=== PATIENT | female | born 1940 | race Caucasian/White ===

== ENCOUNTER 2025-06-08 10:45 | Outpatient (RCR) | payer MEDICARE, SELFPAY ==
--- NOTE | 2025-06-01 18:09 | ST.OPIE ---
Visit Care Team Role Provider Type Maisha Camara MD Family Provider Non-Staff Primary Care Provider Specialty: Medical Address: [address] [place] [address], [place], [phone] Email: Pierre Spicer MD Attending Provider Non-Staff Other Providers Referring Provider Specialty: Ear, Nose, Throat Address: [address] [place] [address], [id number] Email: Speech-Language Pathology Initial Evaluation [facility] Voice Resonance Evaluation Start: 06/01/25 16:00 Freq: Status: Active Protocol: Document 06/01/25 16:00 SS (Rec: 06/01/25 16:14 SS Desktop) Voice and Resonance Assessment Session Time Visit Start Time 10:45 Visit Stop Time 11:25 Total Visit Minutes 40 Visit Information Visit Number 1 Plan of Care Dates 06/01/25-08/31/25 Insurance Medicare (kx modifier after x19 visits) Information Next Note Type Next Note Type Treatment Note Referral Referring Physician Dr. Maisha Camara MD Reason for Referral Muscle tension dysphonia, adductor spasmodic dysphonia Setting Setting Outpatient Care Patient History Patient History Magaly Barrett is an 84-year-old female, referred for speech therapy evaluation by Dr. Camara due to concerns regarding voice. Pt presented to ENT Pierre Spicer MD, on 04/21/25 with sensation of tightness in her throat and voice fluctuations. 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 Voice therapy was recommended prior to pursuing botox injections. PMHx significant for allergies, chronic muscle spasms, chronic cough, and canker sores. Videostroboscopy completed by Dr. Spicer indicated good vocal fold motion, complete glottic closure, thick clear mucous, and mild posterior hypertrophy of the posterior commissure. Strained vocal quality with intermittent voice breaks (worse with voiced vowel sounds) was noted. Pt reported onset of symptoms of about a year ago, which have been worsening. Pt endorses tightness in the anterior laryngeal area and sensation of her voice ?seizing up?. Pt expresses difficulty exhaling during physical activity and in conversation more recently. Pt denied hoarseness and significant changes or increased stress/anxiety. Also denied wheezing. Pt has been avoiding reading to her great grandchildren and participating in social groups due to her symptoms. She reports her symptoms worsen during prolonged periods of talking. Pt has had a chronic cough for many years, but stated frequency/ severity has been improving with reduce exposure to allergens. Her primary goal for treatment is to regain ?the ability to be able to speak freely and to avoid botox injections.? Hearing Hearing Level Normal Vision Vision Status Not Impaired Occupational Status Occupation Status Retired from teaching grade school Previous Therapy Previous Speech- No Language Therapy Oral Motor Assessment Source: [employer] [place] [employer] ([employer] Oral-Motor Eval Yes Completed Oral-Motor CRANIAL NERVE EXAM Assessment CN V (Trigeminal): intact b/l CN VII (Facial): intact b/l CN IX/X (Glossopharyngeal/Vagus): Unable to exclude CN X branch involvement 2/2 dysphonia CN XII (Hypoglossal): intact b/l FEATURES OF NEUROMUSCULAR FUNCTION Muscle Strength: Demonstrated adequate labial and lingual strength during resistance tasks Speed of Movement: At the conversation level, speed of movement is judged to be adequate. Accuracy of Movement: In regards to speech production, accuracy is WNL. Range of Motion: ROM within normal limits. Muscle Tone: Muscle tone of all speech related musculature appeared adequate Subjective Subjective Pt arrived to the session on time. She was was engaged and motivated throughout the assessment. - Laryngeal Performance S/Z Ratio S/Z Ratio 12.69/5.21 = 2.43 Below average Functional for No: Respiratory and laryngeal impairment Speech Reduced Laryngeal Yes Function Relative to Respiration Voice Handicap Index Function Subtotal 14 Physical Subtotal 26 Emotional Subtotal 21 Total Score 61 Severity Severe (61-120) CAPE-V Overall Severity Moderate-severe (c/b roughness, strain, and intermittent voice breaks) Roughness Moderate Breathiness Not observed Strain Moderate-severe Pitch WFL Loudness WFL Normal Resonance? Yes Additional Features Other Other Features Intermittent adductor vocal breaks (voiceless onsets Observed better than voiced) Maximum Phonation Time MPT Norms: Women (15-25) Men (25-35) Loudness (50-60 dB); Speaking Rate: Oral Reading of Sentences (190 Words Per Minute); Oral Reading of Paragraphs (160-170 WPM); Speaking Rate in Conversation (150-250 WPM) Maximum Phonation 6.71 Below Average Time Maximum Phonation Reduced Time Maximum Phonation Connected speech sounds worse than sustained phonation Time Comments Voice Pitch Range Norms: Women (100-300 Hz) Men (70-250 Hz) Fundamental Frequency Norms: Women (Mean: 225 Hz; Range: 155-334 Hz) Men ( Mean: 128 Hz; Range: 85-196 Hz) Voice Pitch Normal Voice Loudness Normal Voice Phonatory- Harsh,Hoarse based Quality Paradoxical Vocal Yes: Intermittent adductor voice breaks, Phoneme Fold Movement specificity present Indications Resonance Nasal Resonance Normal Oral Resonance Normal Other Observations Hard Glottal Attacks,Inadequate Breath Support Findings Findings Moderate Impairment Observations 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 Pt?s dysphonia is characterized by roughness, intermittent strain, and intermittent adductor voice breaks. When whispering, laughing, crying, or yawning, her voice sounds within functional limits. Increased dysphonia symptoms and voice breaks noted during connected speech , as compared to sustained phonation. Voiceless onsets sounded better than voiced onsets. Pt reported difficulty speaking during social groups, speaking on the phone, and reading aloud to her great grandchildren . Prognosis for improvement is good for states goals pending cooperation and motivation. Improvement will be contingent upon pt compliance to the following recommendations. Recommendations are for skilled speech therapy services addressing adductor spasmodic dysphonia and laryngeal muscle tension disorder. Treatment will target education in the pathophysiology of spasmodic dysphonia resulting in the increased adduction of the vocal cords. Pt will also receive education re: the pathophysiology of laryngeal muscle tension and be trained in exercise and manual therapy techniques with the goal of reducing laryngeal tension. Pt will be trained in the following: resonant voice exercises, laryngeal massage, SOVTE, stretch and flow, and diaphragmatic breathing. Prognosis Rehabilitation Good Potential - Recommendations Treatment Yes Recommended Treatment Frequency/ 1x/week for 3 months Duration Therapy The plan is for pt to participate in outpatient speech Recommendations therapy services at a frequency of once a week for 12 weeks to address laryngeal muscle tension and adductor spasmodic dysphonia. Short Term Goals 1. Patient will participate in daily HEP targeting laryngeal muscle tension to improve voice quality per patient report. 2. Patient will benefit from education in mechanics of voicing and tone focus in order to assist in producing resonant voice. 3. Patient will demonstrate recall of vocal hygiene education (hydration, minimizing abusive vocal behaviors, GERD management) via teach-back following initial education to increase awareness of unhealthy versus healthy vocal behaviors and improve voice management. 4. Patient will complete voice exercises (including, but not limited to semi-occluded vocal tract exercises, resonant voice exercises, diaphragmatic breathing, and manual massage) in order to improve overall vocal function, vocal quality, and life participation. Typewriter [employer] Winder Goals 1. Patient will improve overall self-perception of voice from a baseline of 61/120 on VHI-30 following participation in skilled services. 2. Patient will report increased ability to return to baseline voice activities (e.g., speaking for prolonged periods of time, reading to great grandchildren) without experiencing laryngeal tension or adductor vocal breaks following participation in skilled services and/or botox injections. Patient/Caregiver Education Patient/Family Described results of evaluation,Patient Understanding Education Vocally Abusive Behavior Behavior Rating Alcohol Consumption Infrequently Arguing (peers/ Never siblings/other) Athletic Activity Never Yelling Mouth Breathing Never Caffeine Use 5 cups daily Calling from Infrequently Distance Coughing/Sneezing hx of chronic cough Loudly Environmental Infrequently Irritant Exposure Smoking Never Excessive Talking Never Yelling/Screaming Never
--- NOTE | 2025-06-01 18:10 | ST.OPPOC ---
Addendum entered and electronically signed by Gm Fox 06/01/25 18:12: POC sent to referring provider requesting signature if in agreement. Original Note: Physical, Occupational & Speech Therapy [facility] Visit Care Team Role Provider Type Maisha Camara MD Family Provider Non-Staff Primary Care Provider Address: [address] [place] [address], [phone] Pierre Spicer MD Attending Provider Non-Staff Other Providers Referring Provider Address: [address] [place] [address], [id number] Speech Pathology Plan of Care Plan of Care Dates 06/01/25-08/31/[address] Maisha Camara MD Patient History Magaly Barrett is an 84-year-old female, referred for speech therapy evaluation by Dr. Camara due to concerns regarding voice. Pt presented to ENT Pierre Spicer MD, on 04/21/25 with sensation of tightness in her throat and voice fluctuations. 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 Voice therapy was recommended prior to pursuing botox injections. PMHx significant for allergies, chronic muscle spasms, chronic cough, and canker sores. Videostroboscopy completed by Dr. Spicer indicated good vocal fold motion, complete glottic closure, thick clear mucous, and mild posterior hypertrophy of the posterior commissure. Strained vocal quality with intermittent voice breaks (worse with voiced vowel sounds) was noted. Pt reported onset of symptoms of about a year ago, which have been worsening. Pt endorses tightness in the anterior laryngeal area and sensation of her voice ?seizing up?. Pt expresses difficulty exhaling during physical activity and in conversation more recently. Pt denied hoarseness and significant changes or increased stress/ anxiety. Also denied wheezing. Pt has been avoiding reading to her great grandchildren and participating in social groups due to her symptoms. She reports her symptoms worsen during prolonged periods of talking. Pt has had a chronic cough for many years, but stated frequency/severity has been improving with reduce exposure to allergens. Her primary goal for treatment is to regain ?the ability to be able to speak freely and to avoid botox injections.? Voice/Resonance Findings Moderate Impairment Voice/Resonance Prognosis Good Voice/Resonance Yes Recommendations Voice/Resonance Treatment 1x/week for 3 months Frequency Therapy Recommendations The plan is for pt to participate in outpatient speech therapy services at a frequency of once a week for 12 weeks to address laryngeal muscle tension and adductor spasmodic dysphonia. Short Term Goals 1. Patient will participate in daily HEP targeting laryngeal muscle tension to improve voice quality per patient report. 2. Patient will benefit from education in mechanics of voicing and tone focus in order to assist in producing resonant voice. 3. Patient will demonstrate recall of vocal hygiene education (hydration, minimizing abusive vocal behaviors, GERD management) via teach- back following initial education to increase awareness of unhealthy versus healthy vocal behaviors and improve voice management. 4. Patient will complete voice exercises ( including, but not limited to semi-occluded vocal tract exercises, resonant voice exercises, diaphragmatic breathing, and manual massage) in order to improve overall vocal function, vocal quality, and life participation. Shelter Goals 1. Patient will improve overall self-perception of voice from a baseline of 61/120 on VHI-[address] skilled services. 2. Patient will report increased ability to return to baseline voice activities (e.g., speaking for prolonged periods of time, reading to great grandchildren) without experiencing laryngeal tension or adductor vocal breaks following participation in ST skilled services and/or botox injections. Comment: Electronically Signed by: GABY Bray 06/01/25 1810 If you are in agreement with this Plan of Care, please return a signed and dated copy. I have reviewed this Plan of Care and certify that the skilled therapy services above are required to meet the patient?s needs. Physician Signature Date Printed Name and Credentials Clinical Instructor Signature Printed Name and Credentials
--- NOTE | 2025-06-08 13:12 | ST.OPTN ---
Visit Care Team Role Provider Type Maisha Camara MD Family Provider Non-Staff Primary Care Provider Address: [address] [place] [address], [phone] Pierre Spicer MD Attending Provider Non-Staff Other Providers Referring Provider Address: [address] [place] [address], [id number] [employer] Treatment Note [employer]PER[employer]OR Treatment Note Start: 06/01/25 16:00 Freq: Status: Active Protocol: Document 06/08/25 12:05 SS (Rec: 06/08/25 12:14 SS DESKTOP) Speech Pathology Treatment Note Session Time Visit Start Time 10:45 Visit Stop Time 11:25 Total Visit Minutes 40 Visit Information Visit Number 2 Plan of Care Dates 06/01/25-08/31/25 Insurance Medicare (kx modifier after x19 visits) Information Setting Treatment Setting Outpatient Care Visit Type Note Type Treatment Note Next Note Type Next Note Type Treatment Note General Information Patient History Magaly Barrett is an 84-year-old female, referred for speech therapy evaluation by Dr. Camara due to concerns regarding voice. Pt presented to ENT Pierre Spicer MD, on 04/21/25 with sensation of tightness in her throat and voice fluctuations. 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 Voice therapy was recommended prior to pursuing botox injections. PMHx significant for allergies, chronic muscle spasms, chronic cough, and canker sores. Videostroboscopy completed by Dr. Spicer indicated good vocal fold motion, complete glottic closure, thick clear mucous, and mild posterior hypertrophy of the posterior commissure. Strained vocal quality with intermittent voice breaks (worse with voiced vowel sounds) was noted. Pt reported onset of symptoms of about a year ago, which have been worsening. Pt endorses tightness in the anterior laryngeal area and sensation of her voice ?seizing up?. Pt expresses difficulty exhaling during physical activity and in conversation more recently. Pt denied hoarseness and significant changes or increased stress/anxiety. Also denied wheezing. Pt has been avoiding reading to her great grandchildren and participating in social groups due to her symptoms. She reports her symptoms worsen during prolonged periods of talking. Pt has had a chronic cough for many years, but stated frequency/ severity has been improving with reduce exposure to allergens. Her primary goal for treatment is to regain ?the ability to be able to speak freely and to avoid botox injections.? Subjective Identification Type Name Observations/Patient Pt arrived to the session on time. She was engaged and Presentation motivated throughout the session. Objective Short Term Goals 1. Patient will participate in daily HEP targeting laryngeal muscle tension to improve voice quality per patient report. 2. Patient will benefit from education in mechanics of voicing and tone focus in order to assist in producing resonant voice. 3. Patient will demonstrate recall of vocal hygiene education (hydration, minimizing abusive vocal behaviors, GERD management) via teach-back following initial education to increase awareness of unhealthy versus healthy vocal behaviors and improve voice management. 4. Patient will complete voice exercises (including, but not limited to semi-occluded vocal tract exercises, resonant voice exercises, diaphragmatic breathing, and manual massage) in order to improve overall vocal function, vocal quality, and life participation. Nursing Home Goals 1. Patient will improve overall self-perception of voice from a baseline of 61/120 on VHI-[address] skilled services. 2. Patient will report increased ability to return to baseline voice activities (e.g., speaking for prolonged periods of time, reading to great grandchildren) without experiencing laryngeal tension or adductor vocal breaks following participation in ST skilled services and/or botox injections. Treatment Activities Education re: alternatives to chronic cough to reduce unhealthy vocal behaviors. Initiated use of voice exercises targeting reduce laryngeal muscle tension, including SOVTE straw phonation and resonant voice exercises. Reviewed HEP at the end of the session. Assessment Patient Response to Good Treatment Rehab Potential Good Impairments Voice Identified Assessment of [employer]PERVISOR facilitated discussion re: vocal quality in the Improvement past week. Pt reported increased cough in the past week . [employer] SUPERVISOR provided education on use of alternatives to chronic coughing to reduce abusive vocal behaviors. Discussed strategies including gentle dry swallowing, sipping water, performing a silent or ?hastings? cough, and relaxed breathing to clear throat sensations without excessive vocal fold impact. Emphasized that consistent use of these techniques can decrease irritation and inflammation, promoting healthier and more efficient voice use. Pt demonstrated understanding and practiced implementation of strategies during session with initial verbal cueing. Guided pt in resonant voice therapy exercises with the goal of increasing efficiency of vocal fold vibration by using a hierarchal approach and starting with /m/ in isolation. Pt instructed to place her hands on his face for tactile feedback during the humming exercise and to focus on the vibration in the front of her face with minimal effort in the throat. Pt with accurate production on first trial. Increased to syllable/word level with cueing for stretching ?m sound and use of intent. Pt production was strained with vocal breaks with first trial on about 50% of opportunities, with improved vocal quality and decrease in strain given cue to stretch /m/ and clinician modeling. Semi-Occluded Vocal Tract Exercise (SOVTE) straw phonation implemented with the goal of improving balance among the subsystems by increasing vocal tract inertance, resulting in a more efficient voice, and reducing hyperfunction and vocal breaks. Instructed pt in initially blowing through the straw into a cup of water with no voice, increasing to 50% voice and 50% air, and advancing to pitch glides. Pt demonstrated frequent voice breaks initially and strain. She was able to consistently produce airflow for 3-4 seconds. Benefitted from [employer] SUPERVISOR modeling, whispering, and short bursts of breathy voice. Continues to require reinforcement for overly breathy production and pitch glides. Reviewed recommendation for daily HEP at the conclusion of the session, with pt stating understanding. Pt was receptive to education and recommendations. Plan to continue to advance exercises as appropriate. Continue POC at a frequency of once a week. Reviewed with Goals,Home Exercise Program Patient Patient/Caregiver Good Understanding Plan Amount of Therapy 3 Months Recommended Frequency of Once a Week Treatment Length of Session 30 Minutes Therapeutic Contents Client Education,Home Exercise Program,Voice Training Provided Patient/ Home Exercise Program,Plan of Care,Questions/Concerns Caregiver Instruction Therapy Continue with Current Program Recommendations Suggested Referral ENT
--- NOTE | 2025-07-15 12:47 | ST.OPDS ---
Visit Care Team Role Provider Type Maisha Camara MD Family Provider Non-Staff Primary Care Provider Address: [address] [place] [address], [phone] Pierre Spicer MD Attending Provider Non-Staff Other Providers Referring Provider Address: [address] [place] [address], [id number] TIN POT OPERATOR Treatment Note TIN POT OPERATOR Treatment Note Start: 06/01/25 16:00 Freq: Status: Active Protocol: Document 07/15/25 12:45 SS (Rec: 07/15/25 12:47 SS [email or web address]) Speech Pathology Treatment Note Session Time Visit Start Time 10:45 Visit Stop Time 11:25 Total Visit Minutes 40 Visit Information Visit Number 2 Plan of Care Dates 06/01/25-08/31/25 Insurance Medicare (kx modifier after x19 visits) Information Setting Treatment Setting Outpatient Care Visit Type Note Type Treatment Note Next Note Type Next Note Type Treatment Note General Information Patient History Magaly Barrett is an 84-year-old female, referred for speech therapy evaluation by Dr. Camara due to concerns regarding voice. Pt presented to ENT Pierre Spicer MD, on 04/21/25 with sensation of tightness in her throat and voice fluctuations. 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 Voice therapy was recommended prior to pursuing botox injections. PMHx significant for allergies, chronic muscle spasms, chronic cough, and canker sores. Videostroboscopy completed by Dr. Spicer indicated good vocal fold motion, complete glottic closure, thick clear mucous, and mild posterior hypertrophy of the posterior commissure. Strained vocal quality with intermittent voice breaks (worse with voiced vowel sounds) was noted. Pt reported onset of symptoms of about a year ago, which have been worsening. Pt endorses tightness in the anterior laryngeal area and sensation of her voice ?seizing up?. Pt expresses difficulty exhaling during physical activity and in conversation more recently. Pt denied hoarseness and significant changes or increased stress/anxiety. Also denied wheezing. Pt has been avoiding reading to her great grandchildren and participating in social groups due to her symptoms. She reports her symptoms worsen during prolonged periods of talking. Pt has had a chronic cough for many years, but stated frequency/ severity has been improving with reduce exposure to allergens. Her primary goal for treatment is to regain ?the ability to be able to speak freely and to avoid botox injections.? Subjective Identification Type Name Observations/Patient Pt arrived to the session on time. She was engaged and Presentation motivated throughout the session. Objective Short Term Goals 1. Patient will participate in daily HEP targeting laryngeal muscle tension to improve voice quality per patient report. 2. Patient will benefit from education in mechanics of voicing and tone focus in order to assist in producing resonant voice. 3. Patient will demonstrate recall of vocal hygiene education (hydration, minimizing abusive vocal behaviors, GERD management) via teach-back following initial education to increase awareness of unhealthy versus healthy vocal behaviors and improve voice management. 4. Patient will complete voice exercises (including, but not limited to semi-occluded vocal tract exercises, resonant voice exercises, diaphragmatic breathing, and manual massage) in order to improve overall vocal function, vocal quality, and life participation. Custodial Goals 1. Patient will improve overall self-perception of voice from a baseline of 61/120 on VHI-[address] skilled services. 2. Patient will report increased ability to return to baseline voice activities (e.g., speaking for prolonged periods of time, reading to great grandchildren) without experiencing laryngeal tension or adductor vocal breaks following participation in ST skilled services and/or botox injections. Treatment Activities Education re: alternatives to chronic cough to reduce unhealthy vocal behaviors. Initiated use of voice exercises targeting reduce laryngeal muscle tension, including SOVTE straw phonation and resonant voice exercises. Reviewed HEP at the end of the session. Assessment Patient Response to Good Treatment Rehab Potential Good Impairments Voice Identified Assessment of TIN POT OPERATOR facilitated discussion re: vocal quality in the Improvement past week. Pt reported increased cough in the past week . TIN POT OPERATOR provided education on use of alternatives to chronic coughing to reduce abusive vocal behaviors. Discussed strategies including gentle dry swallowing, sipping water, performing a silent or ?hastings? cough, and relaxed breathing to clear throat sensations without excessive vocal fold impact. Emphasized that consistent use of these techniques can decrease irritation and inflammation, promoting healthier and more efficient voice use. Pt demonstrated understanding and practiced implementation of strategies during session with initial verbal cueing. Guided pt in resonant voice therapy exercises with the goal of increasing efficiency of vocal fold vibration by using a hierarchal approach and starting with /m/ in isolation. Pt instructed to place her hands on his face for tactile feedback during the humming exercise and to focus on the vibration in the front of her face with minimal effort in the throat. Pt with accurate production on first trial. Increased to syllable/word level with cueing for stretching ?m sound and use of intent. Pt production was strained with vocal breaks with first trial on about 50% of opportunities, with improved vocal quality and decrease in strain given cue to stretch /m/ and clinician modeling. Semi-Occluded Vocal Tract Exercise (SOVTE) straw phonation implemented with the goal of improving balance among the subsystems by increasing vocal tract inertance, resulting in a more efficient voice, and reducing hyperfunction and vocal breaks. Instructed pt in initially blowing through the straw into a cup of water with no voice, increasing to 50% voice and 50% air, and advancing to pitch glides. Pt demonstrated frequent voice breaks initially and strain. She was able to consistently produce airflow for 3-4 seconds. Benefitted from TIN POT OPERATOR modeling, whispering, and short bursts of breathy voice. Continues to require reinforcement for overly breathy production and pitch glides. Reviewed recommendation for daily HEP at the conclusion of the session, with pt stating understanding. Pt was receptive to education and recommendations. Plan to continue to advance exercises as appropriate. Continue POC at a frequency of once a week. Pt has not been seen since last treatment session on . TIN POT OPERATOR called pt. Pt expressed she is unable to continue to attend due to transportation issues and asked to discharge. Account discharged per pt request. TIN POT OPERATOR provided resources re: in-person clinic closer to pt's home and local telehealth options. Reviewed with Goals,Home Exercise Program Patient Patient/Caregiver Good Understanding Plan Amount of Therapy 3 Months Recommended Frequency of Once a Week Treatment Length of Session 30 Minutes Therapeutic Contents Client Education,Home Exercise Program,Voice Training Provided Patient/ Home Exercise Program,Plan of Care,Questions/Concerns Caregiver Instruction Therapy Continue with Current Program Recommendations Suggested Referral ENT
== END 2025-07-20 14:55 | disposition home or self-care (01) ==
LOC: SP 10:45
PROVIDERS: Family Provider Internal Medicine Geriatric Medicine; PCP Internal Medicine Geriatric Medicine; Referring Provider Specialist; Visit Provider Specialist
DX: R49.0 Dysphonia (principal); J38.3 Other diseases of vocal cords
CPT/HCPCS: 92507; 92524